=== PATIENT | female | born 1975 | race Caucasian/White ===

== ENCOUNTER → 2021-03-10 | Outpatient (CLI) | payer OTHER | LOC: CT 13:37 | DX: R31.9 Hematuria, unspecified (principal); N32.89 Other specified disorders of bladder | CPT/HCPCS: 36415; 82565; Q9967 ==

== ENCOUNTER → 2022-04-28 | Outpatient (CLI) | payer OTHER | LOC: EMI 04-02 13:00 | DX: M54.16 Radiculopathy, lumbar region (principal) | CPT/HCPCS: 72148 ==